=== PATIENT | male | born 2000 | race Hispanic/Latino ===

== ENCOUNTER 2022-10-27 00:44 | Emergency (ER) | payer BC, OTHER ==
[~2022-10-27] VITALS: Ht 165.1 cm; Wt 161.6 kg
[2022-10-27 00:51] VITALS: BP 147/91
[2022-10-27] MEDS ORDERED: ONDANSETRON ODT 4MG TAB SL ONE (01:00)
[2022-10-27] MEDS ORDERED: ACETAMINOPHEN 500 MG TABLET PO ONE (01:00)
== END 2022-10-27 03:49 | disposition home or self-care (01) ==
LOC: EDH 00:44
DX: S09.8XXA Other specified injuries of head, initial encounter (principal); V89.2XXA Person injured in unspecified motor-vehicle accident, traffic, initial encounter; Y93.I9 Activity, other involving external motion; Y92.488 Other paved roadways as the place of occurrence of the external cause; Y99.8 Other external cause status
CPT/HCPCS: 70450